=== PATIENT | female | born 1980 | race Caucasian/White ===

== ENCOUNTER 2017-08-08 16:10 | Emergency (ER) | payer MEDICAID ==
[~2017-08-08] VITALS: Ht 160 cm; Wt 52.0 kg
[2017-08-08] MEDS ORDERED: ACETAMINOPHEN 325MG TABLET PO STA (16:37)
[2017-08-08] MEDS ORDERED: SODIUM CHLORIDE 0.9% 1000ML BAG (SEPSIS BOLUS) IV ONE (16:45)
[2017-08-08 17:40] LABS: BASOPHILS % 0.9 % (0.0-2.0); HEMATOCRIT. 33.5 % (36.0-48.0); HEMOGLOBIN. 10.2 g/dL (12.0-16.0); LYMPHOCYTES % 12.9 % (20.0-50.0); MEAN CORPUSCULAR HEMOGLOBIN 19.6 pg (28.0-32.0); MEAN CORPUSCULAR VOLUME 64.4 fL (81.0-99.0); MEAN PLATELET VOLUME 9.4 fl (7.4-10.4); MONOCYTES % 14.7 % (2.0-8.0); NEUTROPHILS % 71.5 % (40.0-76.0); PLATELET 208 x1000/uL (130-400); RED CELL DISTRIBUTION WIDTH 18.5 % (11.6-14.6)
[2017-08-08 17:46] LABS: CHLORIDE 97 mEq/L (98-107)
[2017-08-08 17:50] LABS: ETHANOL BLOOD < 10 mg/dL
[2017-08-08 18:00] LABS: HCG SCREEN NEGATIVE
[2017-08-08 18:24] LABS: PLATELET ESTIMATE NORMAL
[2017-08-08 20:34] LABS: *AMPHETAMINES SCREEN URINE NEGATIVE (NEGATIVE); *BARBITURATES SCREEN URINE NEGATIVE (NEGATIVE); *BENZODIAZEPINES SCREEN URINE NEGATIVE (NEGATIVE); *COCAINE SCREEN URINE NEGATIVE (NEGATIVE); CANNABINOID URINE SCREEN NEGATIVE (NEGATIVE); METHADONE URINE SCREEN NEGATIVE (NEGATIVE); OPIATES URINE SCREEN NEGATIVE (NEGATIVE); PHENCYCLIDINE URINE SCREEN NEGATIVE (NEGATIVE)
[2017-08-08 21:10] LABS: CLARITY URINE CLOUDY (CLEAR); COLOR URINE YELLOW (YELLOW); KETONES URINE 2+ (NEGATIVE); LEUKOCYTE ESTERASE URINE 2+ (NEGATIVE); NITRITE URINE POSITIVE (NEGATIVE); OCCULT BLOOD URINE 1+ (NEGATIVE); PH URINE 5.5 (4.5-8.0); PROTEIN URINE 2+ (NEGATIVE); SPECIFIC GRAVITY URINE 1.019 (1.005-1.030)
[2017-08-08] MEDS ORDERED: CEFTRIAXONE 1 G PREMIX 50 ML IV ONE (21:30)
[2017-08-08 22:51] VITALS: BP 118/76
== END 2017-08-08 22:53 | disposition home or self-care (01) ==
LOC: ER 18:42
DX: N30.00 Acute cystitis without hematuria (principal); R00.0 Tachycardia, unspecified; R94.31 Abnormal electrocardiogram [ECG] [EKG]
CPT/HCPCS: 36415; 71045; 80053; 80305; 81003; 83605; 83690; 84703; 85025; 87040; 87077; 87086; 87186; 87804; 93005; 96361; 96365; 99285; G0482; J0696; J7030; J7040; Z7610

== ENCOUNTER 2018-04-24 17:50 | Emergency (ER) | payer MEDICAID ==
[~2018-04-24] VITALS: Ht 165.1 cm; Wt 59.0 kg
[2018-04-24] MEDS ORDERED: KETOROLAC 30MG/ML VIAL IM ONE (21:00)
[2018-04-24 21:05] LABS: CLARITY URINE CLEAR (CLEAR); COLOR URINE YELLOW (YELLOW); KETONES URINE NEGATIVE (NEGATIVE); LEUKOCYTE ESTERASE URINE NEGATIVE (NEGATIVE); NITRITE URINE NEGATIVE (NEGATIVE); OCCULT BLOOD URINE NEGATIVE (NEGATIVE); PROTEIN URINE NEGATIVE (NEGATIVE); SPECIFIC GRAVITY URINE 1.013 (1.005-1.030); UROBILINOGEN URINE 0.2 E.U./dL (0.2-1.0)
[2018-04-24] MEDS ORDERED: METHOCARBAMOL 500MG TABLET PO ONE (21:30)
[2018-04-24 23:12] VITALS: BP 124/83
== END 2018-04-24 23:14 | disposition home or self-care (01) ==
LOC: ER 17:50
DX: M54.5 Low back pain (principal)
CPT/HCPCS: 81003; 81025; 96372; 99283; J1885

== ENCOUNTER 2018-05-21 22:02 | Emergency (ER) | payer MEDICAID ==
[~2018-05-21] VITALS: Ht 160 cm; Wt 60.5 kg
[2018-05-22] MEDS ORDERED: KETOROLAC 30MG/ML VIAL IV ONE (01:45)
[2018-05-22 03:29] VITALS: BP 115/71
== END 2018-05-22 03:32 | disposition home or self-care (01) ==
LOC: ER 22:47
DX: G89.18 Other acute postprocedural pain (principal); M25.511 Pain in right shoulder; F45.42 Pain disorder with related psychological factors; R51 Headache; R42 Dizziness and giddiness; R68.2 Dry mouth, unspecified; Z98.890 Other specified postprocedural states
CPT/HCPCS: 81025; 96374; 99283; J1885

== ENCOUNTER 2018-12-31 12:04 | Inpatient (IN) | payer MEDICAID ==
[~2018-12-31] VITALS: Ht 160 cm; Wt 71.2 kg
[2018-12-31] MEDS ORDERED: LORAZEPAM 2MG/ML CPJ ONE ×3 (12:09→21:07)
[2018-12-31] MEDS ORDERED: LEVETIRACETAM 500MG PREMIX 100 ML IV ONE (12:15)
[2018-12-31] MEDS ORDERED: LORAZEPAM 2MG/ML CPJ IV ONE ×3 (12:15→21:30)
[2018-12-31 12:48] LABS: BASOPHILS % 1.5 % (0.0-2.0); EOSINOPHILS % 2.4 % (0.0-5.0); HEMATOCRIT. 38.1 % (36.0-48.0); HEMOGLOBIN. 12.5 g/dL (12.0-16.0); LYMPHOCYTES % 41.5 % (20.0-50.0); MEAN CORPUSCULAR HEMOGLOBIN 28.4 pg (28.0-32.0); MEAN CORPUSCULAR VOLUME 86.6 fL (81.0-99.0); MEAN PLATELET VOLUME 10.4 fl (7.4-10.4); MONOCYTES % 7.1 % (2.0-8.0); NEUTROPHILS % 47.5 % (40.0-76.0); PLATELET 165 x1000/uL (130-400); RED CELL DISTRIBUTION WIDTH 15.3 % (11.6-14.6)
[2018-12-31 12:54] LABS: CHLORIDE 107 mEq/L (98-107)
[2018-12-31 12:59] LABS: ETHANOL BLOOD < 10 mg/dL; HCG SCREEN NEGATIVE
[2018-12-31 13:02] LABS: CARBAMAZEPINE < 0.5 ug/mL (4-12)
[2018-12-31 13:09] LABS: CLARITY URINE CLEAR (CLEAR); COLOR URINE YELLOW (YELLOW); INR 0.9; KETONES URINE NEGATIVE (NEGATIVE); LEUKOCYTE ESTERASE URINE NEGATIVE (NEGATIVE); NITRITE URINE NEGATIVE (NEGATIVE); OCCULT BLOOD URINE NEGATIVE (NEGATIVE); PARTIAL THROMBOPLASTIN TIME 25.2 sec (23.4-31.0); PH URINE 6.5 (4.5-8.0); PROTEIN URINE NEGATIVE (NEGATIVE); PROTHROMBIN TIME 9.7 sec (9.6-11.0); SPECIFIC GRAVITY URINE 1.007 (1.005-1.030); UROBILINOGEN URINE 0.2 E.U./dL (0.2-1.0)
[2018-12-31 13:11] LABS: PHENOBARBITAL < 2.1 ug/mL (15.0-40.0)
[2018-12-31 13:26] LABS: *AMPHETAMINES SCREEN URINE NEGATIVE (NEGATIVE); CANNABINOID URINE SCREEN NEGATIVE (NEGATIVE); METHADONE URINE SCREEN NEGATIVE (NEGATIVE); OPIATES URINE SCREEN NEGATIVE (NEGATIVE); PHENCYCLIDINE URINE SCREEN NEGATIVE (NEGATIVE)
[2018-12-31 13:27] LABS: *BARBITURATES SCREEN URINE NEGATIVE (NEGATIVE); *COCAINE SCREEN URINE NEGATIVE (NEGATIVE)
[2018-12-31 13:30] LABS: *BENZODIAZEPINES SCREEN URINE PRESUMTIVE POSITIVE (NEGATIVE)
[2018-12-31] MEDS ORDERED: ONDANSETRON HCL 4MG/2ML INJ IV PRN (13:45)
[2018-12-31] MEDS ORDERED: MAGNESIUM/ALUMINUM HYDROXIDE/SIMETHICONE 30ML UDC PO PRN (13:45)
[2018-12-31] MEDS ORDERED: DOCUSATE SODIUM 100MG CAPSULE PO PRN (13:45)
[2018-12-31] MEDS ORDERED: ACETAMINOPHEN 325MG TABLET PO PRN (13:45)
[2018-12-31] MEDS ORDERED: IPRATROPIUM/ALBUTEROL 0.5-3(2.5)MG/3ML NEB NEB PRN (13:45)
[2018-12-31] MEDS ORDERED: CLONIDINE 0.1MG TABLET PO PRN (13:45)
[2018-12-31] MEDS ORDERED: VALPROIC ACID 250MG CAPSULE PO ONE (14:00)
[2018-12-31] MEDS: LORAZEPAM 2MG/ML CPJ IV PRN ×2 (15:02→21:01)
[2018-12-31 15:11] LABS: CREATINE KINASE MB FRACTION 1.5 ng/mL (0.5-3.6)
[2018-12-31] MEDS ORDERED: VALPROIC ACID 250MG CAPSULE PO NR (15:15)
[2018-12-31 21:45] VITALS: BP 121/76
[2018-12-31] MEDS ORDERED: TRAM50TA3 MT (22:07)
[2018-12-31 22:17] VITALS: BP 121/76
[2018-12-31 23:20] LABS: CREATINE KINASE MB FRACTION 1.4 ng/mL (0.5-3.6)
[2018-12-31] MEDS: LEVETIRACETAM 500 MG in SODIUM CHLORIDE 0.9% 100 ML IV SCH (23:31)
[2019-01-01 01:19] VITALS: BP 119/77
[2019-01-01 04:00] VITALS: BP 118/75
[2019-01-01 07:00] LABS: BASOPHILS % 0.8 % (0.0-2.0); EOSINOPHILS % 1.5 % (0.0-5.0); HEMATOCRIT. 36.5 % (36.0-48.0); HEMOGLOBIN. 12.2 g/dL (12.0-16.0); LYMPHOCYTES % 27.4 % (20.0-50.0); MEAN CORPUSCULAR HEMOGLOBIN 28.5 pg (28.0-32.0); MEAN CORPUSCULAR VOLUME 85.5 fL (81.0-99.0); MEAN PLATELET VOLUME 11.4 fl (7.4-10.4); MONOCYTES % 7.2 % (2.0-8.0); NEUTROPHILS % 63.1 % (40.0-76.0); PLATELET 172 x1000/uL (130-400); RED BLOOD CELL COUNT 4.27 mill/uL (4.2-5.4); RED CELL DISTRIBUTION WIDTH 15.3 % (11.6-14.6)
[2019-01-01 07:48] LABS: CHLORIDE 106 mEq/L (98-107)
[2019-01-01 07:55] LABS: LDL CHOLESTEROL 99 mg/dL (5-100)
[2019-01-01 07:57] LABS: HDL CHOLESTEROL 58 mg/dL (40-59)
[2019-01-01 08:00] VITALS: BP 122/80
[2019-01-01] MEDS: LEVETIRACETAM 500 MG in SODIUM CHLORIDE 0.9% 100 ML IV SCH ×2 (09:09→20:11)
[2019-01-01] MEDS: ENOXAPARIN 40MG/0.4ML SYR SUBCUT SCH (09:12)
[2019-01-01 12:00] VITALS: BP 119/74
[2019-01-01 12:11] LABS: UCG SCREEN NEGATIVE
[2019-01-01] MEDS ORDERED: LORAZEPAM 0.5MG TABLET PO PRN (14:45)
[2019-01-01 16:00] VITALS: BP 110/70
[2019-01-01] MEDS ORDERED: DOCU250C19 MT (19:20)
[2019-01-01] MEDS ORDERED: GABA-531 PO (19:23)
[2019-01-01] MEDS ORDERED: INDO50CA98 PO ×2 (19:23)
[2019-01-01] MEDS ORDERED: CYCL5TAB PO (19:23)
[2019-01-01 20:00] VITALS: BP 118/73
[2019-01-02] VITALS (8 sets, daily range): BP systolic 103–137; BP diastolic 57–86
[2019-01-02] MEDS: LORAZEPAM 2MG/ML CPJ IV PRN ×4 (03:00→20:21)
[2019-01-02] MEDS ORDERED: LORAZEPAM 2MG/ML CPJ IV PRN (05:15)
[2019-01-02 07:16] LABS: CHLORIDE 106 mEq/L (98-107)
[2019-01-02 07:19] LABS: BASOPHILS % 0.8 % (0.0-2.0); EOSINOPHILS % 1.7 % (0.0-5.0); HEMATOCRIT. 36.8 % (36.0-48.0); HEMOGLOBIN. 12.2 g/dL (12.0-16.0); LYMPHOCYTES % 32.6 % (20.0-50.0); MEAN CORPUSCULAR HEMOGLOBIN 28.5 pg (28.0-32.0); MEAN PLATELET VOLUME 11.7 fl (7.4-10.4); MONOCYTES % 8.8 % (2.0-8.0); NEUTROPHILS % 56.1 % (40.0-76.0); PLATELET 184 x1000/uL (130-400); RED BLOOD CELL COUNT 4.28 mill/uL (4.2-5.4)
[2019-01-02] MEDS: LEVETIRACETAM 500 MG in SODIUM CHLORIDE 0.9% 100 ML IV SCH ×2 (09:12→21:07)
[2019-01-02] MEDS: ENOXAPARIN 40MG/0.4ML SYR SUBCUT SCH (09:12)
[2019-01-03] VITALS (17 sets, daily range): BP systolic 95–127; BP diastolic 37–86
[2019-01-03 05:35] LABS: BASOPHILS % 0.6 % (0.0-2.0); EOSINOPHILS % 1.4 % (0.0-5.0); HEMATOCRIT. 37.5 % (36.0-48.0); HEMOGLOBIN. 12.2 g/dL (12.0-16.0); LYMPHOCYTES % 36.2 % (20.0-50.0); MEAN CORPUSCULAR HEMOGLOBIN 28.2 pg (28.0-32.0); MEAN CORPUSCULAR VOLUME 86.8 fL (81.0-99.0); MEAN PLATELET VOLUME 11.1 fl (7.4-10.4); MONOCYTES % 8.2 % (2.0-8.0); NEUTROPHILS % 53.6 % (40.0-76.0); PLATELET 173 x1000/uL (130-400); RED BLOOD CELL COUNT 4.32 mill/uL (4.2-5.4); RED CELL DISTRIBUTION WIDTH 15.1 % (11.6-14.6)
[2019-01-03] MEDS: LEVETIRACETAM 500 MG in SODIUM CHLORIDE 0.9% 100 ML IV SCH (09:21)
[2019-01-03] MEDS: ENOXAPARIN 40MG/0.4ML SYR SUBCUT SCH (09:22)
[2019-01-03] MEDS: LORAZEPAM 2MG/ML CPJ IV PRN (12:30)
== END 2019-01-03 17:50 | disposition home or self-care (01) | DRG 756 ==
LOC: ER 12:12 → 8WST 13:13 → ENRESERV 19:54 → MICUSO 01-02 20:48
PROVIDERS: ADMIT Internal Medicine; ATTEND Internal Medicine
PROC: 4A00X4Z Measurement of Central Nervous Electrical Activity, External Approach (ICD-10-PCS; principal; 2019-01-03)
DX: F44.5 Conversion disorder with seizures or convulsions (principal); E44.1 Mild protein-calorie malnutrition; F41.1 Generalized anxiety disorder; M48.061 Spinal stenosis, lumbar region without neurogenic claudication; R20.0 Anesthesia of skin; J45.909 Unspecified asthma, uncomplicated; M51.37 Other intervertebral disc degeneration, lumbosacral region; R51 Headache; E83.51 Hypocalcemia
CPT/HCPCS: 36415; 70551; 71045; 72148; 80048; 80061; 80156; 80165; 80184; 80185; 80305; 80320; 81003; 81025; 82550; 82553; 83735; 84443; 84484; 84703; 86850; 86900; 93005; 93970; 96374; 99285; J1650; J1953; J2060; J2405; J7050; G0480

== ENCOUNTER 2019-08-06 15:43 | Emergency (ER) | payer MEDICAID, OTHER ==
[~2019-08-06] VITALS: Ht 162.6 cm; Wt 69.0 kg
[~2019-08-06 15:43] MED LIST: CYCL5TAB PO; DOCU250C19 MT; GABA-531 PO; INDO50CA98 PO
[2019-08-06] MEDS ORDERED: LORAZEPAM 1MG TABLET PO ONE (16:45)
[2019-08-06 17:08] LABS: BASOPHILS % 2.9 % (0.0-2.0); EOSINOPHILS % 0.8 % (0.0-5.0); HEMATOCRIT. 36.9 % (36.0-48.0); LYMPHOCYTES % 40.7 % (20.0-50.0); MEAN CORPUSCULAR HEMOGLOBIN 24.6 pg (28.0-32.0); MEAN CORPUSCULAR VOLUME 75.9 fL (81.0-99.0); MEAN PLATELET VOLUME 10.5 fl (7.4-10.4); MONOCYTES % 7.1 % (2.0-8.0); NEUTROPHILS % 48.5 % (40.0-76.0); PLATELET 173 x1000/uL (130-400); RED BLOOD CELL COUNT 4.86 mill/uL (4.2-5.4)
[2019-08-06 17:13] LABS: CHLORIDE 110 mEq/L (98-107)
[2019-08-06 18:04] VITALS: BP 112/78
== END 2019-08-06 18:07 | disposition home or self-care (01) ==
LOC: ER 15:43
DX: F41.9 Anxiety disorder, unspecified (principal); R06.02 Shortness of breath; Z79.899 Other long term (current) drug therapy; Z88.6 Allergy status to analgesic agent
CPT/HCPCS: 36415; 80053; 81025; 85025; 93005; 99284

== ENCOUNTER 2021-12-23 13:40 | Emergency (ER) | payer MEDICAID, OTHER ==
[~2021-12-23] VITALS: Ht 165.1 cm; Wt 68.0 kg
[~2021-12-23 13:40] MED LIST changes: -GABA-531 PO; +GABA-532 PO
[2021-12-23] MEDS ORDERED: ONDANSETRON HCL 4MG/2ML INJ IV STA (14:09)
[2021-12-23] MEDS ORDERED: LORAZEPAM 2MG/ML CPJ ONE ×2 (14:15→15:56)
[2021-12-23 14:31] LABS: BASOPHILS % 2.4 % (0.0-2.0); EOSINOPHILS % 2.2 % (0.0-5.0); HEMATOCRIT. 34.6 % (36.0-48.0); HEMOGLOBIN. 10.1 g/dL (12.0-16.0); LYMPHOCYTES % 37.3 % (20.0-50.0); MEAN CORPUSCULAR HEMOGLOBIN 20.1 pg (28.0-32.0); MEAN CORPUSCULAR VOLUME 68.7 fL (81.0-99.0); MEAN PLATELET VOLUME 9.8 fl (7.4-10.4); MONOCYTES % 7.5 % (2.0-8.0); NEUTROPHILS % 50.6 % (40.0-76.0); PLATELET 166 x1000/uL (130-400); RED BLOOD CELL COUNT 5.04 mill/uL (4.2-5.4); RED CELL DISTRIBUTION WIDTH 19.4 % (11.6-14.6)
[2021-12-23 14:35] LABS: CHLORIDE 107 mEq/L (98-107)
[2021-12-23 14:43] LABS: ETHANOL BLOOD < 10 mg/dL
[2021-12-23 14:59] LABS: PLATELET ESTIMATE NORMAL
[2021-12-23 15:30] LABS: HCG SCREEN NEGATIVE
[2021-12-23] MEDS ORDERED: LEVETIRACETAM 500MG PREMIX 100 ML IV NR (16:00)
[2021-12-23] MEDS ORDERED: LORAZEPAM 2MG/ML CPJ IV NR (16:00)
[2021-12-23 17:26] LABS: CLARITY URINE CLEAR (CLEAR); COLOR URINE YELLOW (YELLOW); KETONES URINE NEGATIVE (NEGATIVE); LEUKOCYTE ESTERASE URINE NEGATIVE (NEGATIVE); NITRITE URINE NEGATIVE (NEGATIVE); OCCULT BLOOD URINE NEGATIVE (NEGATIVE); PH URINE 6.5 (4.5-8.0); PROTEIN URINE NEGATIVE (NEGATIVE); SPECIFIC GRAVITY URINE 1.007 (1.005-1.030); UROBILINOGEN URINE 0.2 E.U./dL (0.2-1.0)
[2021-12-23 17:47] LABS: *AMPHETAMINES SCREEN URINE NEGATIVE (NEGATIVE); *BARBITURATES SCREEN URINE NEGATIVE (NEGATIVE); *BENZODIAZEPINES SCREEN URINE NEGATIVE (NEGATIVE); *COCAINE SCREEN URINE NEGATIVE (NEGATIVE); CANNABINOID URINE SCREEN NEGATIVE (NEGATIVE); METHADONE URINE SCREEN NEGATIVE (NEGATIVE); OPIATES URINE SCREEN NEGATIVE (NEGATIVE); PHENCYCLIDINE URINE SCREEN NEGATIVE (NEGATIVE)
[2021-12-23 22:20] VITALS: BP 122/77
== END 2021-12-23 22:42 | disposition left against medical advice (07) ==
LOC: ER 13:40 → EDBEDREQ 18:20 → EDBEDREQTM 18:20 → ER 22:42 → CANBEDREQ 23:06
DX: G40.901 Epilepsy, unspecified, not intractable, with status epilepticus (principal); D64.9 Anemia, unspecified; Z88.5 Allergy status to narcotic agent; Z79.899 Other long term (current) drug therapy
CPT/HCPCS: 36415; 80053; 80305; 80320; 81003; 82962; 84703; 85025; 96365; 96366; 96375; 99284; J1953; J2060; J2405; G0480

== ENCOUNTER 2022-07-16 17:01 | Emergency (ER) | payer MEDICAID, OTHER ==
[~2022-07-16] VITALS: Ht 167.6 cm; Wt 68.0 kg
[~2022-07-16 17:01] MED LIST changes: +LEVE1000 MT
[2022-07-16] MEDS ORDERED: LEVETIRACETAM 500MG PREMIX 100 ML IV ONE (17:15)
[2022-07-16] MEDS ORDERED: SODIUM CHLORIDE 0.9% 1,000 ML IV ONE (17:15)
[2022-07-16 18:18] LABS: HEMATOCRIT. 34.6 % (36.0-48.0); HEMOGLOBIN. 10.9 g/dL (12.0-16.0); MEAN CORPUSCULAR HEMOGLOBIN 22.8 pg (28.0-32.0); MEAN CORPUSCULAR VOLUME 72.6 fL (81.0-99.0); RED BLOOD CELL COUNT 4.76 mill/uL (4.2-5.4)
[2022-07-16 18:19] LABS: BASOPHILS % 1.5 % (0.0-2.0); EOSINOPHILS % 2.1 % (0.0-5.0); LYMPHOCYTES % 29.6 % (20.0-50.0); MEAN PLATELET VOLUME 10.3 fl (7.4-10.4); MONOCYTES % 6.4 % (2.0-8.0); NEUTROPHILS % 60.4 % (40.0-76.0); PLATELET 218 x1000/uL (130-400); RED CELL DISTRIBUTION WIDTH 19.2 % (11.6-14.6)
[2022-07-16 18:34] LABS: ETHANOL BLOOD < 10 mg/dL
[2022-07-16 18:41] LABS: CHLORIDE 109 mEq/L (98-107)
[2022-07-16] MEDS ORDERED: LEVE1000 MT (18:55)
[2022-07-16 19:27] VITALS: BP 147/88
== END 2022-07-16 19:30 | disposition home or self-care (01) ==
LOC: ER 17:01
DX: R56.9 Unspecified convulsions (principal); D64.9 Anemia, unspecified; F41.9 Anxiety disorder, unspecified; Z85.9 Personal history of malignant neoplasm, unspecified; Z79.899 Other long term (current) drug therapy
CPT/HCPCS: 36415; 80053; 80320; 85025; 96365; 99284; J1953; J7030; G0480